=== PATIENT | male | born 1980 | race Caucasian/White ===

== ENCOUNTER 2017-06-09 12:09 | Emergency (ER) | payer MEDICAID ==
--- NOTE | 2017-06-09 14:20 | RAD ---
Indication: Right hand pain. 4 views of the right hand demonstrates fracture of the head of the fourth and fifth metacarpal heads. Minimal volar angulation is noted. IMPRESSION: Fractures of the head of the fourth and fifth metacarpals.
[2017-06-09] MEDS ORDERED: Ibuprofen TAB* 600 MG PO ONE (15:00)
--- NOTE | 2017-06-09 15:00 | UC ---
Upper Extremity HPI - HPI Summary HPI Summary: 36 male presents to ED with complaints of right hand pain that began yesterday after accidentally punching a door when trying to catch a drink from falling and spilling. Also states he has a small cut on the top of his hand in the same area of pain. Admits to significant swelling. Has been taking ibuprofen without relief. Last took at 7am this morning. NO other complaints/injuries. Denies numbness/tingling. States he is mostly right hand dominant. No previous injury/ fractures. No PMHx. - History of Current Complaint Chief Complaint: EDLacSutureRecheck Stated Complaint: RT HAND INJURY Time Seen by Provider: 06/09/17 13:21 Hx Obtained From: Patient Onset/Duration: Sudden Onset, Lasting Days - 2 Severity Initially: Moderate Severity Currently: Moderate Pain Intensity: 7 Pain Scale Used: 0-10 Numeric Location Of Pain: Is Discrete @ - right hand at 4/5th metacarpal heads Character: Sharp, Aching Aggravating Factor(s): Movement - and touch Alleviating Factor(s): Nothing, Ice, Rest Associated Signs And Symptoms: Positive: Swelling, Bruising Related History: Dominant Hand Right - "mostly" - Allergies/Home Medications Allergies/Adverse Reactions: Allergies Allergy/AdvReac Type Severity Reaction Status Date / Time amoxicillin Allergy Anaphylatic Verified 06/09/17 12:12 Shock Penicillins Allergy Anaphylatic Verified 06/09/17 12:12 Shock PMH/Surg Hx/FS Hx/Imm Hx - Additional Past Medical History Additional PMH: Denies PMHx - Surgical History Surgical History: None - Family History Known Family History: Positive: None - Social History Alcohol Use: Rare Substance Use Type: None Smoking Status (MU): Heavy Every Day Tobacco Smoker Type: Cigarettes Amount Used/How Often: 1 ppd Review of Systems Constitutional: Negative Respiratory: Negative Cardiovascular: Negative Musculoskeletal: Arthralgia, Decreased ROM, Edema - right hand, Myalgia Neurological: Negative All Other Systems Reviewed And Are Negative: Yes Physical Exam Triage Information Reviewed: Yes Appearance: Well-Appearing, No Pain Distress, Well-Nourished Vital Signs: Initial Vital Signs Temp 98.2 F 06/09/17 12:12 Pulse 111 06/09/17 12:12 Resp 14 06/09/17 12:12 BP 127/94 06/09/17 12:12 Pulse Ox 96 06/09/17 12:12 tachycardia noted, improved once pain improved and patient rested Vital Signs Reviewed: Yes Eyes: Positive: Conjunctiva Clear Respiratory: Positive: Chest non-tender, Lungs clear, Normal breath sounds, No respiratory distress, No accessory muscle use Cardiovascular: Positive: RRR, No Murmur, Pulses Normal - 2+ radial, Brisk Capillary Refill - < 2 seconds Musculoskeletal: Positive: Strength Limited @, ROM Limited @, Edema @ - right hand at 4/5th metacarpal heads with bruising and erythema Neurological: Positive: Alert, Muscle Tone Normal Skin: Positive: Other - small superficial abrasion/laceration .5cm over dorsal hand of 4/5th metacarpals Procedures - Splinting Location: right hand Hand-Made Type: plaster Splint: ulnar - gutter Pre-Proc Neuro Vasc Exam: normal Post-Proc Neuro Vasc Exam: normal, unchanged from pre-exam - Laceration/Wound Repair 1 Location: Other - right hand Description: Linear Length, Depth and Shape: .5cm linear, superficial just through epidermal layer Irrigated w/ Saline (ccs): 50 Laceration/Wound Explored: clean, no foreign body removed Sterile Dressing Applied?: Yes - triple antbitoic and bandaid Diagnostics - Radiology right hand Xray Interpretation: Positive (See Comments) - Fractures of the head of the fourth and fifth metacarpals. Radiology Interpretation Completed By: Radiologist Upper Extremity Course/Dx - Course Course Of Treatment: xray obtained and showed boxer fracture. given pain medication. laceration was irrigated, cleaned and triple antibiotic ointment applied. dressing applied. too superficial for any repair, and not required at this time. hand was placed in an ulnar gutter splint without complication. patient tolerated procedure well. no further concerns at this time. follow up ortho. RICE and analgesic. tetanus was updated in 2013 therefore not needed today. given bactrim to prevent infection "open fracture". refrain from use. patient agrees and understands plan. - Differential Dx/Diagnosis Differential Diagnosis/HQI/PQRI: Fracture (Closed), Laceration, Strain, Sprain, Other - laceration, abrasion, open fracture Provider Diagnoses: boxer fracture, fourth and fifth metacarpal head fracture right hand Discharge - Discharge Plan Condition: Good Disposition: HOME Prescriptions: HYDROcodone/ACETAMIN 5-325 MG* [Kerrick 5-325 TAB*] 1 tab PO Q6H PRN #10 tab MDD 2 PRN Reason: Pain Sulfamethox/Trimethoprim DS* [Bactrim DS 800/160 TAB*] 1 tab PO BID #13 tab Patient Education Materials: Hand Fracture (ED), Boxer Fracture (ED) Referrals: Bennie Cross MD [Medical Doctor] - [facility] [Outside] Additional Instructions: Take prescribed medication to help prevent infection. Take pain medication along with ibuprofen to help with pain and inflammation. Rest, ice and elevate. Do not get splint wet. Avoid use of hand. Call and make an appointment with ortho for further evaluation and treatment. Any new or worsening symptoms please seek medical attention, as discussed.
[2017-06-09] MEDS ORDERED: Tetan/Diph/Pertus SYR(Tdap)* 0.5 ML SYR(BOOSTRIX) use SYR IM ONE (15:23)
[2017-06-09] MEDS ORDERED: HYDROcodone/ACETAMIN 5-325 MG* 1 TAB PO ONE (15:23)
[2017-06-09] MEDS ORDERED: Sulfamethox/Trimethoprim SS 400/80* TAB PO ONE (15:23)
[2017-06-09] MEDS ORDERED: Sulfamethox/Trimethoprim DS 800/160* TAB PO ONE (16:04)
[2017-06-09] MEDS ORDERED: Sulfamethox/Trimethoprim DS 800/160* TAB ONE ×2 (16:07)
[2017-06-09 16:24] VITALS: BP 00/0
== END 2017-06-09 16:21 | disposition home or self-care (01) ==
LOC: ED 12:09
DX: M79.641 Pain in right hand (principal); S62.304A Unspecified fracture of fourth metacarpal bone, right hand, initial encounter for closed fracture; S62.306A Unspecified fracture of fifth metacarpal bone, right hand, initial encounter for closed fracture; W22.09XA Striking against other stationary object, initial encounter; Y92.9 Unspecified place or not applicable; F17.210 Nicotine dependence, cigarettes, uncomplicated
CPT/HCPCS: 90471; 99282; A9270-GY